=== PATIENT | male | born 1950 | race African-American/Black ===

== ENCOUNTER 2024-02-11 15:07 | Inpatient (IN) | payer MEDICARE, MEDICAID ==
[~2024-02-11] VITALS: Ht 188 cm; Wt 65.8 kg
[2024-02-11] MEDS: AZITHROMYCIN 500MG/250ML 250 ML IV SCH
[2024-02-11] MEDS: PIPERACILLIN/TAZO 3.375G/50ML 50 ML IV ONE (15:30)
[2024-02-11] MEDS: VANCOMYCIN 1G PREMIX 200 ML IV ONE (15:30)
[2024-02-11 16:16] LABS: BASOPHILS % 0.1 % (0.0-2.0); DIFFERENTIAL COMMENT 0; EOSINOPHILS % 0.5 % (0.0-5.0); HEMATOCRIT. 50.2 % (42.0-52.0); LYMPHOCYTES % 7.1 % (20.0-50.0); MEAN CORPUSCULAR HEMOGLOBIN 30.9 pg (28.0-32.0); MEAN CORPUSCULAR HGB CONC 29.8 g/dL (31.0-37.0); MEAN CORPUSCULAR VOLUME 103.5 fL (80.0-94.0); MEAN PLATELET VOLUME 8.6 fl (7.4-10.4); NEUTROPHILS % 83.3 % (40.0-76.0); PLATELET 165 x1000/uL (130-400); RED BLOOD CELL COUNT 4.85 mill/uL (4.7-6.1); RED CELL DISTRIBUTION WIDTH 17.5 % (11.6-14.6); WHITE BLOOD COUNT 11.4 x1000/uL (4.5-11.0)
[2024-02-11 16:24] LABS: CHLORIDE 99 mEq/L (98-107); POTASSIUM 4.9 mEq/L (3.5-5.1); SODIUM 136 mEq/L (136-145)
[2024-02-11 16:25] LABS: CALCIUM 8.7 mg/dL (8.7-10.4); CARBON DIOXIDE 33 mEq/L (21-32)
[2024-02-11 16:27] LABS: INR 1.1; PROTHROMBIN TIME 11.9 sec (9.6-11.0)
[2024-02-11 16:30] LABS: CREATININE 1.5 mg/dL (0.6-1.3); GLUCOSE 115 mg/dL (70-105); UREA NITROGEN BLOOD 45 mg/dL (9-23)
[2024-02-11 16:31] LABS: LACTIC ACID 2.7 mmol/L (0.4-2.0)
[2024-02-11 16:32] LABS: ALANINE AMINOTRANSFERASE 66 IU/L (10-49); ALBUMIN 4.1 g/dL (3.2-4.8); ASPARTATE AMINOTRANSFERASE 41 IU/L (<34); BILIRUBIN DIRECT 0.4 mg/dL (<=3.0); CREATINE KINASE 55 IU/L (46-171); PROTEIN TOTAL 7.5 g/dL (6.0-8.3); TROPONIN I HIGH SENSITIVITY 53 ng/L (3.0-53)
[2024-02-11] MEDS: SODIUM CHLORIDE 0.9% 1000ML BAG (SEPSIS BOLUS) IV ONE (17:06)
[2024-02-11 19:52] LABS: CLARITY URINE CLEAR (CLEAR); COLOR URINE YELLOW (YELLOW); GLUCOSE URINE NEGATIVE (NEGATIVE); KETONES URINE NEGATIVE (NEGATIVE); LEUKOCYTE ESTERASE URINE 1+ (NEGATIVE); NITRITE URINE POSITIVE (NEGATIVE); OCCULT BLOOD URINE 1+ (NEGATIVE); PH URINE 5.5 (4.5-8.0); PROTEIN URINE 1+ (NEGATIVE)
[2024-02-11 20:02] LABS: BACTERIA URINE 2+; SQUAMOUS EPITHELIAL CELL URINE 1+ /lpf (RARE/1+)
[2024-02-11 21:13] LABS: BG BASE EXCESS -1.1 mmol/L (-2.0-2.0); BG CARBOXYHEMOGLOBIN 1.8 % (0.5-1.5); BG DEOXYHEMOGLOBIN 25.7 % (0.0-5.0); BG FRACTION INSPIRED OXYGEN 21; BG HCO3 ACT 28.1 mmol/L (22.0-26.0); BG METHEMOGLOBIN 0.3 % (0.0-1.5); BG OXYGEN SATURATION 73.7 % (92.0-98.5); BG OXYHEMOGLOBIN 72.2 % (94.0-97.0); BG PCO2 67.4 mmHg (35.0-45.0); BG PH 7.238 (7.350-7.450); BG SAMPLE SITE RIGHT BRACHIAL; BG TOTAL HEMOGLOBIN 14.8 g/dL (12.0-18.0); BG VENT MODE ROOM AIR
[2024-02-11] MEDS: SODIUM CHLORIDE 0.9% 1,000 ML IV ONE (21:23)
[2024-02-11 21:29] VITALS: RESP 26
[2024-02-11] MEDS ORDERED: METHYLPREDNISOLONE SOD SUCC 40MG/ML (ACT-O-VIAL) IV SCH (22:00)
[2024-02-11] MEDS: IPRATROPIUM/ALBUTEROL 0.5-3(2.5)MG/3ML NEB HHN ONE (22:48)
[2024-02-11] MEDS: METHYLPREDNISOLONE SOD SUCC 40MG/ML (ACT-O-VIAL) IV SCH (22:52)
[2024-02-11 22:56] VITALS: RESP 22
[2024-02-11] MEDS: CEFTRIAXONE 1GM/50ML 50 ML IV SCH (23:06)
[2024-02-12] VITALS (10 sets, daily range): BP systolic 124–128; BP diastolic 78–98; PULSE 81–88; RESP 18–23; TEMP 36.5292; O2SAT 99
[2024-02-12] MEDS: IPRATROPIUM/ALBUTEROL 0.5-3(2.5)MG/3ML NEB HHN SCH (00:40)
[2024-02-12 04:36] LABS: BG BASE EXCESS -0.8 mmol/L (-2.0-2.0); BG CARBOXYHEMOGLOBIN 1.2 % (0.5-1.5); BG DEOXYHEMOGLOBIN 0.3 % (0.0-5.0); BG FRACTION INSPIRED OXYGEN 100; BG HCO3 ACT 28.5 mmol/L (22.0-26.0); BG METHEMOGLOBIN 0.1 % (0.0-1.5); BG OXYGEN SATURATION 99.7 % (92.0-98.5); BG OXYHEMOGLOBIN 98.4 % (94.0-97.0); BG PCO2 68.7 mmHg (35.0-45.0); BG PH 7.236 (7.350-7.450); BG PO2 532.2 mmHg (75.0-100.0); BG SAMPLE SITE LEFT RADIAL; BG TOTAL HEMOGLOBIN 14.5 g/dL (12.0-18.0); BG VENT MODE MASK - BIPAP
[2024-02-12 05:32] LABS: HEMATOCRIT. 47.8 % (42.0-52.0); HEMOGLOBIN. 14.2 g/dL (14.0-18.0); MEAN CORPUSCULAR HEMOGLOBIN 31.4 pg (28.0-32.0); MEAN CORPUSCULAR HGB CONC 29.6 g/dL (31.0-37.0); MEAN CORPUSCULAR VOLUME 106.1 fL (80.0-94.0); MEAN PLATELET VOLUME 8.9 fl (7.4-10.4); PLATELET 90 x1000/uL (130-400); RED BLOOD CELL COUNT 4.51 mill/uL (4.7-6.1); RED CELL DISTRIBUTION WIDTH 18.1 % (11.6-14.6)
[2024-02-12 05:37] LABS: DIFFERENTIAL COMMENT 1
[2024-02-12 05:39] LABS: CHLORIDE 104 mEq/L (98-107); POTASSIUM 4.9 mEq/L (3.5-5.1); SODIUM 137 mEq/L (136-145)
[2024-02-12 05:40] LABS: CARBON DIOXIDE 27 mEq/L (21-32)
[2024-02-12 05:41] LABS: CALCIUM 8.1 mg/dL (8.7-10.4)
[2024-02-12 05:45] LABS: CREATININE 1.1 mg/dL (0.6-1.3); GLUCOSE 159 mg/dL (70-105); UREA NITROGEN BLOOD 32 mg/dL (9-23)
[2024-02-12 05:46] LABS: TROPONIN I HIGH SENSITIVITY 32 ng/L (3.0-53)
[2024-02-12 05:47] LABS: ALANINE AMINOTRANSFERASE 52 IU/L (10-49); ALBUMIN 3.4 g/dL (3.2-4.8); ASPARTATE AMINOTRANSFERASE 39 IU/L (<34)
[2024-02-12 05:48] LABS: BILIRUBIN TOTAL 0.6 mg/dL (0.1-1.0); PROTEIN TOTAL 6.4 g/dL (6.0-8.3)
[2024-02-12 05:54] LABS: LACTIC ACID 3.4 mmol/L (0.4-2.0)
[2024-02-12 07:11] LABS: PLATELET ESTIMATE NORMAL
[2024-02-12] MEDS: METHYLPREDNISOLONE SOD SUCC 40MG/ML (ACT-O-VIAL) IV SCH (08:04)
[2024-02-12] MEDS: PANTOPRAZOLE SODIUM 40 MG/VIAL IV SCH (09:36)
[2024-02-12 17:58] LABS: BG BASE EXCESS 0.3 mmol/L (-2.0-2.0); BG CARBOXYHEMOGLOBIN 1.3 % (0.5-1.5); BG DEOXYHEMOGLOBIN 2.3 % (0.0-5.0); BG FRACTION INSPIRED OXYGEN 35; BG HCO3 ACT 27.7 mmol/L (22.0-26.0); BG METHEMOGLOBIN 0.2 % (0.0-1.5); BG OXYGEN SATURATION 97.7 % (92.0-98.5); BG OXYHEMOGLOBIN 96.2 % (94.0-97.0); BG PCO2 55.8 mmHg (35.0-45.0); BG PH 7.313 (7.350-7.450); BG PO2 98.8 mmHg (75.0-100.0); BG SAMPLE SITE RIGHT RADIAL; BG TOTAL HEMOGLOBIN 14.7 g/dL (12.0-18.0); BG VENT MODE MASK - BIPAP
[2024-02-12] MEDS ORDERED: CEFTRIAXONE 1GM/50ML 50 ML IV SCH (20:00)
[2024-02-12] MEDS ORDERED: AZITHROMYCIN 500MG/250ML 250 ML IV SCH (21:00)
[2024-02-13] VITALS (20 sets, daily range): BP systolic 99–135; BP diastolic 66–97; PULSE 78–104; RESP 17–24; TEMP 36.114–36.61404; O2SAT 94–100
[2024-02-13] MEDS: CEFTRIAXONE 1GM/50ML 50 ML IV SCH (00:07)
[2024-02-13] MEDS: AZITHROMYCIN 500MG/250ML 250 ML IV SCH (00:08)
[2024-02-13] MEDS ORDERED: DOCUSATE SODIUM 100MG CAPSULE PO PRN (11:45)
[2024-02-13] MEDS ORDERED: CLONIDINE 0.1MG TABLET PO PRN (11:45)
[2024-02-13] MEDS ORDERED: ONDANSETRON HCL 4MG/2ML INJ IV PRN (11:45)
[2024-02-13] MEDS ORDERED: ACETAMINOPHEN 325MG TABLET PO PRN (11:45)
[2024-02-13] MEDS: BLOOD SUGAR DIAGNOSTIC STRIP TEST SCH (12:48)
[2024-02-13] MEDS: INSULIN LISPRO 100 UNITS/ML SUBCUT SCH (12:49)
[2024-02-13] MEDS: FUROSEMIDE 40MG/4ML VIAL IVP SCH (13:22)
[2024-02-13] MEDS: METHYLPREDNISOLONE SOD SUCC 40MG/ML (ACT-O-VIAL) IV SCH (13:22)
[2024-02-13 17:36] LABS: HEMATOCRIT. 42.6 % (42.0-52.0); HEMOGLOBIN. 13.1 g/dL (14.0-18.0); MEAN CORPUSCULAR HEMOGLOBIN 31.6 pg (28.0-32.0); MEAN CORPUSCULAR HGB CONC 30.7 g/dL (31.0-37.0); MEAN CORPUSCULAR VOLUME 102.9 fL (80.0-94.0); MEAN PLATELET VOLUME 8.9 fl (7.4-10.4); PLATELET 146 x1000/uL (130-400); RED BLOOD CELL COUNT 4.14 mill/uL (4.7-6.1); RED CELL DISTRIBUTION WIDTH 16.7 % (11.6-14.6); WHITE BLOOD COUNT 12.4 x1000/uL (4.5-11.0)
[2024-02-13 17:39] LABS: CHLORIDE 102 mEq/L (98-107); POTASSIUM 5.5 mEq/L (3.5-5.1); SODIUM 139 mEq/L (136-145)
[2024-02-13 17:40] LABS: CALCIUM 8.7 mg/dL (8.7-10.4); CARBON DIOXIDE 32 mEq/L (21-32)
[2024-02-13 17:44] LABS: DIFFERENTIAL COMMENT 1
[2024-02-13 17:45] LABS: CREATININE 0.9 mg/dL (0.6-1.3); GLUCOSE 88 mg/dL (70-105); UREA NITROGEN BLOOD 17 mg/dL (9-23)
[2024-02-13 17:47] LABS: ALANINE AMINOTRANSFERASE 45 IU/L (10-49); ALBUMIN 3.5 g/dL (3.2-4.8); ASPARTATE AMINOTRANSFERASE 31 IU/L (<34); BILIRUBIN DIRECT 0.2 mg/dL (<=3.0); BILIRUBIN TOTAL 0.6 mg/dL (0.1-1.0); PROTEIN TOTAL 6.5 g/dL (6.0-8.3)
[2024-02-13 19:30] LABS: *AMPHETAMINES SCREEN URINE NEGATIVE (NEGATIVE); *BARBITURATES SCREEN URINE NEGATIVE (NEGATIVE); *BENZODIAZEPINES SCREEN URINE NEGATIVE (NEGATIVE); *COCAINE SCREEN URINE NEGATIVE (NEGATIVE); CANNABINOID URINE SCREEN NEGATIVE (NEGATIVE); ECSTASY MDMA SCREEN URINE NEGATIVE (NEGATIVE); METHADONE URINE SCREEN NEGATIVE (NEGATIVE); OPIATES URINE SCREEN NEGATIVE (NEGATIVE); PHENCYCLIDINE URINE SCREEN NEGATIVE (NEGATIVE)
[2024-02-13 23:26] LABS: ANISOCYTOSIS 1+; PLATELET ESTIMATE NORMAL
[2024-02-14] VITALS (15 sets, daily range): BP systolic 106–128; BP diastolic 69–102; PULSE 76–105; RESP 17–30; TEMP 36.114–36.83628; O2SAT 91–100
[2024-02-14] MEDS: DEXTROSE 50% WATER 50ML SYRINGE IV PRN (09:10)
[2024-02-14] MEDS: MONTELUKAST SODIUM 10MG TABLET PO SCH (13:24)
[2024-02-14 17:32] LABS: HEMATOCRIT. 43.9 % (42.0-52.0); HEMOGLOBIN. 13.1 g/dL (14.0-18.0); MEAN CORPUSCULAR HEMOGLOBIN 31.1 pg (28.0-32.0); MEAN CORPUSCULAR HGB CONC 29.9 g/dL (31.0-37.0); MEAN CORPUSCULAR VOLUME 103.9 fL (80.0-94.0); MEAN PLATELET VOLUME 9.1 fl (7.4-10.4); PLATELET 147 x1000/uL (130-400); RED BLOOD CELL COUNT 4.23 mill/uL (4.7-6.1); RED CELL DISTRIBUTION WIDTH 17.4 % (11.6-14.6); WHITE BLOOD COUNT 14.5 x1000/uL (4.5-11.0)
[2024-02-14 17:36] LABS: CHLORIDE 101 mEq/L (98-107); POTASSIUM 5.6 mEq/L (3.5-5.1); SODIUM 139 mEq/L (136-145)
[2024-02-14 17:37] LABS: CARBON DIOXIDE 34 mEq/L (21-32); DIFFERENTIAL COMMENT 1
[2024-02-14 17:38] LABS: CALCIUM 8.8 mg/dL (8.7-10.4)
[2024-02-14 17:42] LABS: CREATININE 0.9 mg/dL (0.6-1.3); GLUCOSE 108 mg/dL (70-105)
[2024-02-14 17:43] LABS: UREA NITROGEN BLOOD 18 mg/dL (9-23)
[2024-02-14 21:45] LABS: ANISOCYTOSIS 1+; PLATELET ESTIMATE NORMAL
[2024-02-15] VITALS (17 sets, daily range): BP systolic 101–130; BP diastolic 61–97; PULSE 79–112; RESP 16–25; TEMP 36.114–36.50292; O2SAT 94–100
[2024-02-15] MEDS ORDERED: LIDOCAINE HCL 1% 10 MG/ML 10ML VIAL ONE (08:01)
[2024-02-15] MEDS: MAGIC MOUTHWASH SSW SCH (17:00)
[2024-02-15] MEDS: METHYLPREDNISOLONE SOD SUCC 40MG/ML (ACT-O-VIAL) IV SCH (21:21)
[2024-02-15] MEDS: ACETAMINOPHEN 325MG TABLET PO PRN (21:21)
[2024-02-16] VITALS (18 sets, daily range): BP systolic 32–135; BP diastolic 16–86; PULSE 80–130; RESP 19–28; TEMP 36.16956–36.55848; O2SAT 64–100
[2024-02-16 09:42] LABS: HEPATITIS B SURFACE ANTIGEN NEGATIVE (Negative)
[2024-02-16 09:59] LABS: HEMATOCRIT. 42.9 % (42.0-52.0); HEMOGLOBIN. 13.1 g/dL (14.0-18.0); MEAN CORPUSCULAR HGB CONC 30.6 g/dL (31.0-37.0); MEAN CORPUSCULAR VOLUME 101.3 fL (80.0-94.0); MEAN PLATELET VOLUME 8.8 fl (7.4-10.4); PLATELET 147 x1000/uL (130-400); RED BLOOD CELL COUNT 4.24 mill/uL (4.7-6.1); RED CELL DISTRIBUTION WIDTH 16.3 % (11.6-14.6)
[2024-02-16 10:01] LABS: HIV 1/2 AB P24AG Negative (Negative)
[2024-02-16 10:02] LABS: CHLORIDE 95 mEq/L (98-107); DIFFERENTIAL COMMENT 1; POTASSIUM 4.9 mEq/L (3.5-5.1); SODIUM 137 mEq/L (136-145)
[2024-02-16 10:03] LABS: HEPATITIS A AB IGM NEGATIVE (Negative)
[2024-02-16 10:04] LABS: HEPATITIS B CORE AB IGM REACTIVE (Negative); HEPATITIS C AB NON REACTIVE (Neg) (Negative)
[2024-02-16 10:05] LABS: CALCIUM 8.8 mg/dL (8.7-10.4)
[2024-02-16 10:10] LABS: CREATININE 0.7 mg/dL (0.6-1.3); GLUCOSE 120 mg/dL (70-105); UREA NITROGEN BLOOD 18 mg/dL (9-23)
[2024-02-16 10:12] LABS: ALANINE AMINOTRANSFERASE 43 IU/L (10-49); ALBUMIN 3.1 g/dL (3.2-4.8); ASPARTATE AMINOTRANSFERASE 36 IU/L (<34); BILIRUBIN DIRECT 0.2 mg/dL (<=3.0); BILIRUBIN TOTAL 0.7 mg/dL (0.1-1.0)
[2024-02-16 10:13] LABS: PROTEIN TOTAL 5.8 g/dL (6.0-8.3)
[2024-02-16 10:45] LABS: CARBON DIOXIDE > 40 mEq/L (21-32)
[2024-02-16 13:12] LABS: ANISOCYTOSIS 1+; PLATELET ESTIMATE NORMAL
[2024-02-16] MEDS: METOPROLOL TARTRATE 50MG TABLET PO SCH (20:41)
[2024-02-16] MEDS: DILTIAZEM HCL 30MG TABLET PO SCH (21:48)
[2024-02-17] VITALS (8 sets, daily range): BP systolic 97–115; BP diastolic 66–78; PULSE 69–112; RESP 17–27; TEMP 36.3918–36.89184; O2SAT 93–97
[2024-02-17 07:27] LABS: CHLORIDE 96 mEq/L (98-107); SODIUM 138 mEq/L (136-145)
[2024-02-17 07:28] LABS: CALCIUM 8.7 mg/dL (8.7-10.4); CARBON DIOXIDE 39 mEq/L (21-32)
[2024-02-17 07:33] LABS: CREATININE 0.7 mg/dL (0.6-1.3); GLUCOSE 148 mg/dL (70-105)
[2024-02-17 07:34] LABS: UREA NITROGEN BLOOD 20 mg/dL (9-23)
[2024-02-17 08:09] LABS: HEMATOCRIT. 42.5 % (42.0-52.0); HEMOGLOBIN. 13.2 g/dL (14.0-18.0); MEAN CORPUSCULAR VOLUME 100.1 fL (80.0-94.0); PLATELET 148 x1000/uL (130-400); RED BLOOD CELL COUNT 4.25 mill/uL (4.7-6.1); RED CELL DISTRIBUTION WIDTH 15.8 % (11.6-14.6); WHITE BLOOD COUNT 10.2 x1000/uL (4.5-11.0)
[2024-02-17 08:30] LABS: DIFFERENTIAL COMMENT 1
[2024-02-17] MEDS: FAMOTIDINE 20MG/2ML VIAL IV SCH (08:58)
[2024-02-17] MEDS: IPRATROPIUM/ALBUTEROL 0.5-3(2.5)MG/3ML NEB HHN PRN (11:26)
[2024-02-17 17:09] LABS: PLATELET ESTIMATE NORMAL
[2024-02-18] VITALS: BP 129/91; PULSE 92; RESP 20; TEMP 36.72516; O2SAT 93
[2024-02-18 04:00] VITALS: BP_SYST 125; BP_SYST 145; BP_DIAS 86; BP_DIAS 95; PULSE 104; RESP 20; TEMP 36.78072; O2SAT 94
[2024-02-18 06:51] LABS: HEMATOCRIT. 45.4 % (42.0-52.0); HEMOGLOBIN. 13.8 g/dL (14.0-18.0); MEAN CORPUSCULAR HEMOGLOBIN 30.4 pg (28.0-32.0); MEAN CORPUSCULAR HGB CONC 30.3 g/dL (31.0-37.0); MEAN CORPUSCULAR VOLUME 100.2 fL (80.0-94.0); MEAN PLATELET VOLUME 9.2 fl (7.4-10.4); PLATELET 158 x1000/uL (130-400); RED BLOOD CELL COUNT 4.53 mill/uL (4.7-6.1); RED CELL DISTRIBUTION WIDTH 16.7 % (11.6-14.6); WHITE BLOOD COUNT 10.7 x1000/uL (4.5-11.0)
[2024-02-18 06:53] LABS: DIFFERENTIAL COMMENT 1
[2024-02-18 06:54] LABS: CHLORIDE 97 mEq/L (98-107); POTASSIUM 4.8 mEq/L (3.5-5.1); SODIUM 137 mEq/L (136-145)
[2024-02-18 06:55] LABS: CARBON DIOXIDE 39 mEq/L (21-32)
[2024-02-18 06:56] LABS: CALCIUM 8.4 mg/dL (8.7-10.4)
[2024-02-18 07:00] LABS: CREATININE 0.9 mg/dL (0.6-1.3); GLUCOSE 258 mg/dL (70-105); UREA NITROGEN BLOOD 28 mg/dL (9-23)
[2024-02-18 08:00] VITALS: BP 114/79; PULSE 97; RESP 20; TEMP 36.44736; O2SAT 95
[2024-02-18 12:00] VITALS: BP 108/73; PULSE 81; RESP 20; TEMP 36.83628; O2SAT 96
[2024-02-18] MEDS: ASPIRIN 81MG TABLET PO SCH (13:03)
[2024-02-18 16:00] VITALS: BP 109/80; PULSE 71; RESP 31; TEMP 36.9474; O2SAT 97
[2024-02-18 17:02] LABS: PLATELET ESTIMATE NORMAL
[2024-02-18 20:00] VITALS: BP 128/84; PULSE 85; RESP 22
[2024-02-19] VITALS: BP_SYST 107; BP_SYST 118; BP_DIAS 67; BP_DIAS 74; PULSE 61; PULSE 85; RESP 18; RESP 26; TEMP 36.33624; TEMP 36.83628; O2SAT 94; O2SAT 98
[2024-02-19 04:00] VITALS: BP 122/84; PULSE 92; RESP 21; TEMP 36.78072; O2SAT 98
[2024-02-19 08:00] VITALS: BP 127/83; PULSE 84; RESP 25; TEMP 36.89184; O2SAT 100
[2024-02-19 12:00] VITALS: BP 119/84; PULSE 95; RESP 25; TEMP 37.05852; O2SAT 96
[2024-02-19 16:00] VITALS: BP 104/62; PULSE 84; RESP 25; TEMP 37.05852; O2SAT 95
[2024-02-19 16:46] LABS: HEMATOCRIT. 47.4 % (42.0-52.0); HEMOGLOBIN. 14.2 g/dL (14.0-18.0); MEAN CORPUSCULAR HEMOGLOBIN 30.5 pg (28.0-32.0); MEAN CORPUSCULAR HGB CONC 29.9 g/dL (31.0-37.0); MEAN PLATELET VOLUME 9.2 fl (7.4-10.4); PLATELET 175 x1000/uL (130-400); RED BLOOD CELL COUNT 4.65 mill/uL (4.7-6.1); RED CELL DISTRIBUTION WIDTH 16.7 % (11.6-14.6)
[2024-02-19 16:47] LABS: DIFFERENTIAL COMMENT 1
[2024-02-19 16:51] LABS: CHLORIDE 97 mEq/L (98-107); POTASSIUM 5.2 mEq/L (3.5-5.1); SODIUM 139 mEq/L (136-145)
[2024-02-19 16:53] LABS: CALCIUM 8.4 mg/dL (8.7-10.4)
[2024-02-19 16:57] LABS: GLUCOSE 278 mg/dL (70-105)
[2024-02-19 16:58] LABS: UREA NITROGEN BLOOD 29 mg/dL (9-23)
[2024-02-19 16:59] LABS: ALANINE AMINOTRANSFERASE 54 IU/L (10-49); ALBUMIN 3.2 g/dL (3.2-4.8); ASPARTATE AMINOTRANSFERASE 32 IU/L (<34); BILIRUBIN TOTAL 0.6 mg/dL (0.1-1.0)
[2024-02-19 17:00] LABS: PROTEIN TOTAL 5.7 g/dL (6.0-8.3)
[2024-02-19 17:04] LABS: PLATELET ESTIMATE NORMAL
[2024-02-19 17:07] LABS: CARBON DIOXIDE > 40 mEq/L (21-32)
[2024-02-19 20:00] VITALS: BP 109/67; PULSE 105; RESP 32; TEMP 37.00296; O2SAT 99
[2024-02-20] VITALS: BP 118/67; PULSE 70; RESP 20; TEMP 36.89184; O2SAT 99
[2024-02-20 04:00] VITALS: BP 108/61; PULSE 69; RESP 18; TEMP 36.28068; O2SAT 96
[2024-02-20 08:00] VITALS: BP 131/74; PULSE 66; RESP 18; TEMP 36.3918; O2SAT 100
[2024-02-20 08:08] LABS: CHLORIDE 100 mEq/L (98-107); POTASSIUM 5.3 mEq/L (3.5-5.1); SODIUM 144 mEq/L (136-145)
[2024-02-20 08:14] LABS: CREATININE 0.9 mg/dL (0.6-1.3); GLUCOSE 154 mg/dL (70-105); UREA NITROGEN BLOOD 31 mg/dL (9-23)
[2024-02-20 08:16] LABS: ALANINE AMINOTRANSFERASE 49 IU/L (10-49); ASPARTATE AMINOTRANSFERASE 27 IU/L (<34); BILIRUBIN TOTAL 0.6 mg/dL (0.1-1.0); PROTEIN TOTAL 5.3 g/dL (6.0-8.3)
[2024-02-20 08:49] LABS: CARBON DIOXIDE > 40 mEq/L (21-32)
[2024-02-20 12:00] VITALS: BP 104/59; PULSE 74; RESP 20; TEMP 36.3918; O2SAT 90
[2024-02-20 14:19] LABS: BG BASE EXCESS 16.6 mmol/L (-2.0-2.0); BG CARBOXYHEMOGLOBIN 1.4 % (0.5-1.5); BG DEOXYHEMOGLOBIN 31.3 % (0.0-5.0); BG FRACTION INSPIRED OXYGEN 21; BG HCO3 ACT 48.8 mmol/L (22.0-26.0); BG METHEMOGLOBIN 0.3 % (0.0-1.5); BG OXYGEN SATURATION 68.2 % (92.0-98.5); BG PH 7.302 (7.350-7.450); BG PO2 37.9 mmHg (75.0-100.0); BG SAMPLE SITE LEFT RADIAL; BG TOTAL HEMOGLOBIN 15.3 g/dL (12.0-18.0); BG VENT MODE ROOM AIR
[2024-02-20] MEDS ORDERED: IPRATROPIUM/ALBUTEROL 0.5-3(2.5)MG/3ML NEB HHN PRN (15:00)
[2024-02-20 16:00] VITALS: BP 119/71; PULSE 64; RESP 24; TEMP 36.3918; O2SAT 99
[2024-02-20 20:00] VITALS: BP 106/55; PULSE 65; RESP 19; TEMP 36.3918
[2024-02-21] VITALS (7 sets, daily range): BP systolic 90–115; BP diastolic 48–66; PULSE 63–86; RESP 16–20; TEMP 36.16956–36.6696; O2SAT 95–99
[2024-02-21] MEDS: IPRATROPIUM/ALBUTEROL 0.5-3(2.5)MG/3ML NEB HHN SCH
[2024-02-21] MEDS: FAMOTIDINE 20MG TABLET PO SCH (10:19)
[2024-02-22] VITALS (8 sets, daily range): BP systolic 98–131; BP diastolic 59–82; PULSE 66–90; RESP 16–20; TEMP 36.16956–36.89184; O2SAT 86–100
[2024-02-22] MEDS: METHYLPREDNISOLONE SOD SUCC 40MG/ML (ACT-O-VIAL) IV SCH (09:54)
[2024-02-23] VITALS (9 sets, daily range): BP systolic 104–142; BP diastolic 48–84; PULSE 65–103; RESP 16–22; TEMP 36.114–37.61412; O2SAT 97–99
[2024-02-23 15:07] LABS: BG BASE EXCESS 15.4 mmol/L (-2.0-2.0); BG CARBOXYHEMOGLOBIN 1.9 % (0.5-1.5); BG DEOXYHEMOGLOBIN 0.8 % (0.0-5.0); BG FRACTION INSPIRED OXYGEN 34; BG HCO3 ACT 44.2 mmol/L (22.0-26.0); BG METHEMOGLOBIN 0.2 % (0.0-1.5); BG OXYGEN SATURATION 99.2 % (92.0-98.5); BG OXYHEMOGLOBIN 97.1 % (94.0-97.0); BG PCO2 72.5 mmHg (35.0-45.0); BG PH 7.403 (7.350-7.450); BG PO2 141.3 mmHg (75.0-100.0); BG SAMPLE SITE LEFT BRACHIAL; BG VENT MODE NASAL CANNULA
[2024-02-24] VITALS (8 sets, daily range): BP systolic 111–127; BP diastolic 66–78; PULSE 68–99; RESP 18–20; TEMP 36.33624–37.28076; O2SAT 96–100
[2024-02-24 06:49] LABS: CALCIUM 8.7 mg/dL (8.7-10.4); CHLORIDE 98 mEq/L (98-107); POTASSIUM 4.5 mEq/L (3.5-5.1); SODIUM 142 mEq/L (136-145)
[2024-02-24 06:55] LABS: CREATININE 0.7 mg/dL (0.6-1.3); GLUCOSE 125 mg/dL (70-105)
[2024-02-24 07:00] LABS: HEMATOCRIT. 45.4 % (42.0-52.0); HEMOGLOBIN. 13.9 g/dL (14.0-18.0); MEAN CORPUSCULAR HEMOGLOBIN 30.2 pg (28.0-32.0); MEAN CORPUSCULAR HGB CONC 30.6 g/dL (31.0-37.0); MEAN CORPUSCULAR VOLUME 98.6 fL (80.0-94.0); MEAN PLATELET VOLUME 9.2 fl (7.4-10.4); PLATELET 170 x1000/uL (130-400); RED CELL DISTRIBUTION WIDTH 15.9 % (11.6-14.6); WHITE BLOOD COUNT 12.9 x1000/uL (4.5-11.0)
[2024-02-24 07:11] LABS: DIFFERENTIAL COMMENT 1
[2024-02-24 08:30] LABS: CARBON DIOXIDE > 40 mEq/L (21-32)
[2024-02-24] MEDS: HYDROCODONE/ACETAMINOPHEN 10/325MG TABLET PO PRN (10:06)
[2024-02-24] MEDS ORDERED: ACETAZOLAMIDE 250MG TABLET PO SCH (16:05)
[2024-02-24 17:06] LABS: BG BASE EXCESS 15.5 mmol/L (-2.0-2.0); BG CARBOXYHEMOGLOBIN 1.9 % (0.5-1.5); BG DEOXYHEMOGLOBIN 17.8 % (0.0-5.0); BG FRACTION INSPIRED OXYGEN 21; BG HCO3 ACT 43.3 mmol/L (22.0-26.0); BG METHEMOGLOBIN 0.1 % (0.0-1.5); BG OXYGEN SATURATION 81.8 % (92.0-98.5); BG OXYHEMOGLOBIN 80.2 % (94.0-97.0); BG PCO2 64.1 mmHg (35.0-45.0); BG PH 7.447 (7.350-7.450); BG PO2 46.5 mmHg (75.0-100.0); BG SAMPLE SITE LEFT BRACHIAL; BG TOTAL HEMOGLOBIN 15.8 g/dL (12.0-18.0); BG VENT MODE ROOM AIR
[2024-02-25] VITALS (8 sets, daily range): BP systolic 96–140; BP diastolic 60–90; PULSE 64–102; RESP 16–20; TEMP 36.72516–37.2252; O2SAT 95–98
[2024-02-25 01:28] LABS: PLATELET ESTIMATE NORMAL
[2024-02-25] MEDS: FUROSEMIDE 40MG TABLET PO SCH (12:07)
[2024-02-26] VITALS: BP 97/55; PULSE 80; RESP 19; TEMP 36.3918; O2SAT 80; O2SAT 96
[2024-02-26 04:00] VITALS: BP 105/56; PULSE 63; RESP 18; TEMP 36.61404; O2SAT 96
[2024-02-26 08:00] VITALS: BP 109/55; PULSE 58; RESP 20; TEMP 37.05852; O2SAT 96
[2024-02-26 12:00] VITALS: BP 98/53; PULSE 82; RESP 18; TEMP 37.11408; O2SAT 100
[2024-02-26 16:00] VITALS: BP 102/61; PULSE 68; RESP 18; TEMP 36.50292; O2SAT 96
[2024-02-26 20:00] VITALS: BP 96/53; PULSE 96; RESP 19; TEMP 36.44736; O2SAT 96
[2024-02-26] MEDS: SODIUM CHLORIDE 10% FOR INH 15ML NEB INH SCH (23:51)
[2024-02-27] VITALS: BP 110/66; PULSE 96; RESP 19; TEMP 36.78072; O2SAT 97
[2024-02-27 04:00] VITALS: BP 114/42; PULSE 97; RESP 18; TEMP 36.6696; O2SAT 97
[2024-02-27 08:10] VITALS: BP 111/54; PULSE 71; RESP 20; TEMP 37.00296; O2SAT 100
[2024-02-27 12:20] VITALS: BP 98/54; PULSE 71; RESP 20; TEMP 36.50292; O2SAT 100
[2024-02-27 16:00] VITALS: BP 104/67; PULSE 84; RESP 20; TEMP 37.00296; O2SAT 97
[2024-02-27] MEDS ORDERED: NALOXONE HCL 0.4MG/ML VIAL IV PRN (17:45)
[2024-02-27 20:00] VITALS: BP 98/54; PULSE 102; RESP 20; TEMP 36.89184
[2024-02-27] MEDS ORDERED: SODIUM CHLORIDE 10% FOR INH 15ML NEB INH NR (21:15)
[2024-02-28] VITALS: BP 101/62; PULSE 92; RESP 20; TEMP 36.55848; O2SAT 98
[2024-02-28 04:00] VITALS: BP 105/55; PULSE 98; RESP 20; TEMP 36.33624
[2024-02-28 08:00] VITALS: BP 103/56; PULSE 74; RESP 18; TEMP 36.16956; O2SAT 98
[2024-02-28] MEDS ORDERED: SODIUM CHLORIDE 3% FOR INH 4ML NEB INH SCH (09:00)
[2024-02-28 12:00] VITALS: BP 103/54; PULSE 70; RESP 18; TEMP 36.114; O2SAT 99
[2024-02-28 15:17] LABS: BG BASE EXCESS 16.3 mmol/L (-2.0-2.0); BG CARBOXYHEMOGLOBIN 1.1 % (0.5-1.5); BG DEOXYHEMOGLOBIN 2.1 % (0.0-5.0); BG FRACTION INSPIRED OXYGEN 30; BG HCO3 ACT 45.9 mmol/L (22.0-26.0); BG METHEMOGLOBIN 0.1 % (0.0-1.5); BG OXYGEN SATURATION 97.9 % (92.0-98.5); BG OXYHEMOGLOBIN 96.7 % (94.0-97.0); BG PCO2 81.4 mmHg (35.0-45.0); BG PH 7.369 (7.350-7.450); BG PO2 102.2 mmHg (75.0-100.0); BG SAMPLE SITE LEFT RADIAL; BG TOTAL HEMOGLOBIN 13.8 g/dL (12.0-18.0); BG VENT MODE NASAL CANNULA
[2024-02-28 16:00] VITALS: BP 101/65; PULSE 89; RESP 18; TEMP 36.28068; O2SAT 100
[2024-02-28 20:30] VITALS: BP 91/52; PULSE 112; RESP 18; TEMP 36.55848; O2SAT 97
[2024-02-29 00:07] VITALS: BP 124/62; PULSE 77; RESP 18; TEMP 36.33624; O2SAT 98
[2024-02-29 04:15] VITALS: BP 100/49; PULSE 74; RESP 18; TEMP 36.61404; O2SAT 100
[2024-02-29 08:00] VITALS: BP 101/48; PULSE 117; RESP 19; TEMP 36.72516; O2SAT 97
[2024-02-29 12:00] VITALS: BP 121/63; PULSE 119; RESP 19; TEMP 36.72516
[2024-02-29 16:00] VITALS: BP 93/48; PULSE 113; RESP 19; TEMP 36.44736; O2SAT 92
[2024-02-29 20:00] VITALS: BP 106/60; PULSE 110; RESP 18; TEMP 36.55848; O2SAT 97
[2024-03-01] VITALS: BP 110/63; PULSE 105; RESP 18; TEMP 36.61404; O2SAT 95
[2024-03-01 04:00] VITALS: BP 107/61; PULSE 99; RESP 18; TEMP 36.78072; O2SAT 94
[2024-03-01 07:15] LABS: CARBON DIOXIDE 38 mEq/L (21-32); CHLORIDE 103 mEq/L (98-107); POTASSIUM 4.8 mEq/L (3.5-5.1); SODIUM 143 mEq/L (136-145)
[2024-03-01 07:16] LABS: CALCIUM 8.1 mg/dL (8.7-10.4)
[2024-03-01 07:20] LABS: CREATININE 0.7 mg/dL (0.6-1.3)
[2024-03-01 07:21] LABS: GLUCOSE 76 mg/dL (70-105); UREA NITROGEN BLOOD 16 mg/dL (9-23)
[2024-03-01 07:22] LABS: HEMATOCRIT 40.7 % (42.0-52.0); HEMOGLOBIN 12.4 g/dL (14.0-18.0); MEAN CORPUSCULAR HEMOGLOBIN 30.1 pg (28.0-32.0); MEAN CORPUSCULAR HGB CONC 30.4 g/dL (31.0-37.0); MEAN CORPUSCULAR VOLUME 99.1 fL (80.0-94.0); PLATELET 158 x1000/uL (130-400); RED BLOOD CELL COUNT 4.11 mill/uL (4.7-6.1); RED CELL DISTRIBUTION WIDTH 16.8 % (11.6-14.6); WHITE BLOOD COUNT 4.2 x1000/uL (4.5-11.0)
[2024-03-01 08:00] VITALS: BP 108/67; PULSE 84; RESP 19; TEMP 36.50292; O2SAT 98
[2024-03-01] MEDS ORDERED: FURO-152 MT (11:01)
[2024-03-01] MEDS ORDERED: ASPI-1497 MT (11:01)
[2024-03-01] MEDS ORDERED: METO25TA6 MT (11:01)
[2024-03-01] MEDS ORDERED: ALBU6.7H15 INH (11:01)
[2024-03-01 12:00] VITALS: BP 95/60; PULSE 100; RESP 21; TEMP 36.05844; O2SAT 96
[2024-03-01 13:00] LABS: BG BASE EXCESS 11.6 mmol/L (-2.0-2.0); BG CARBOXYHEMOGLOBIN 1.8 % (0.5-1.5); BG DEOXYHEMOGLOBIN 17.1 % (0.0-5.0); BG FRACTION INSPIRED OXYGEN 21; BG HCO3 ACT 38.5 mmol/L (22.0-26.0); BG METHEMOGLOBIN 0.3 % (0.0-1.5); BG OXYGEN SATURATION 82.5 % (92.0-98.5); BG OXYHEMOGLOBIN 80.8 % (94.0-97.0); BG PCO2 60.2 mmHg (35.0-45.0); BG PH 7.424 (7.350-7.450); BG PO2 44.2 mmHg (75.0-100.0); BG TOTAL HEMOGLOBIN 14.1 g/dL (12.0-18.0); BG VENT MODE ROOM AIR
[2024-03-01 16:00] VITALS: BP 102/53; PULSE 77; RESP 18; TEMP 36.72516; O2SAT 99
[2024-03-01 20:48] VITALS: BP 95/58; PULSE 73; RESP 18; TEMP 36.3918; O2SAT 95
[2024-03-02] VITALS: BP 97/58; PULSE 102; RESP 19; TEMP 36.3918; O2SAT 98
[2024-03-02 04:00] VITALS: BP 102/45; PULSE 109; RESP 19; TEMP 36.28068
[2024-03-02 08:00] VITALS: BP 108/54; PULSE 117; RESP 18; TEMP 37.05852; O2SAT 92
[2024-03-02 09:00] VITALS: BP 108/54; PULSE 117; TEMP 98.6; O2SAT 86
[2024-03-02 09:45] VITALS: PULSE 117
[2024-03-02] MEDS: METOPROLOL TARTRATE 25MG TABLET PO SCH (09:45)
== END 2024-03-02 14:05 | disposition home health service (06) | DRG 720 ==
LOC: ER 15:07 → EDBD 15:07 → EDBEDREQ 18:15 → EDBEDREQTM 18:15 → EDBEDREQSVC 21:41 → 5EST 02-12 18:03 → 7WST 02-19 22:15
PROVIDERS: ADMIT Internal Medicine; ATTEND Internal Medicine
PROC: 5A09457 Assistance with Respiratory Ventilation, 24-96 Consecutive Hours, Continuous Positive Airway Pressure (ICD-10-PCS; 2024-02-11)
PROC: 5A09357 Assistance with Respiratory Ventilation, Less than 24 Consecutive Hours, Continuous Positive Airway Pressure (ICD-10-PCS; 2024-02-13)
PROC: 02HV33Z Insertion of Infusion Device into Superior Vena Cava, Percutaneous Approach (ICD-10-PCS; principal; 2024-02-15)
PROC: B548ZZA Ultrasonography of Superior Vena Cava, Guidance (ICD-10-PCS; 2024-02-15)
DX: A41.9 Sepsis, unspecified organism (principal); J96.01 Acute respiratory failure with hypoxia; I50.23 Acute on chronic systolic (congestive) heart failure; E43 Unspecified severe protein-calorie malnutrition; N17.9 Acute kidney failure, unspecified; J18.9 Pneumonia, unspecified organism; J44.1 Chronic obstructive pulmonary disease with (acute) exacerbation; J45.901 Unspecified asthma with (acute) exacerbation; E11.51 Type 2 diabetes mellitus with diabetic peripheral angiopathy without gangrene; J96.02 Acute respiratory failure with hypercapnia; F17.210 Nicotine dependence, cigarettes, uncomplicated; N39.0 Urinary tract infection, site not specified; R74.01 Elevation of levels of liver transaminase levels; H57.89 Other specified disorders of eye and adnexa; L03.116 Cellulitis of left lower limb; L85.3 Xerosis cutis; B19.10 Unspecified viral hepatitis B without hepatic coma; R65.20 Severe sepsis without septic shock; Z20.822 Contact with and (suspected) exposure to COVID-19; X58.XXXA Exposure to other specified factors, initial encounter; K12.1 Other forms of stomatitis; R49.0 Dysphonia; R26.89 Other abnormalities of gait and mobility; S90.822A Blister (nonthermal), left foot, initial encounter; Z68.1 Body mass index [BMI] 19.9 or less, adult; Y93.89 Activity, other specified; Y92.89 Other specified places as the place of occurrence of the external cause; Y99.8 Other external cause status
CPT/HCPCS: 36415; 36573; 36600; 71045; 71250; 73600; 76700; 80048; 80053; 80076; 80305; 81003; 82375; 82550; 82553; 82805; 82962; 83036; 83605; 83880; 84145; 84484; 85025; 85027; 85379; 86705; 86709; 87070; 87106; 87340; 87426; 92523; 93005; 93306; 93923; 93970; 93971; 94640; 94660; 97162; 99291; A6261; C1725; C1893; J0456; J0696; J1815; J1940; J2470; J2543; J2920; J3370; J3490; J7030; J7131